=== PATIENT | male | born 1985 | race American Indian/Alaskan Native ===

== ENCOUNTER 2017-05-05 16:49 | Emergency (ER) | payer OTHER ==
[2017-05-05 16:49] VITALS: BMI 29.9
[2017-05-05] MEDS ORDERED: Sodium Chloride 0.9% 1,000 ML IV ONE (17:24)
--- NOTE | 2017-05-05 17:35 | C.PDOC ---
History Of Present Illness 32 y/o male presents to ED with complaints of abdominal pain and onset headache. Patient states he was seen at [facility] on Wednesday and treated for a stomach virus and discharged with medications with no improvement. Patient denies fever, chills, n/v/d or any other complaints at this time. Time Seen by Provider: 05/05/17 17:13 Chief Complaint (Nursing): Abdominal Pain History Per: Patient History/Exam Limitations: no limitations Onset/Duration Of Symptoms: Days Current Symptoms Are (Timing): Still Present Past Medical History Reviewed: Historical Data, Nursing Documentation, Vital Signs Vital Signs: Last Vital Signs Temp 99.3 F 05/05/17 16:56 Pulse 89 05/05/17 16:56 Resp 18 05/05/17 16:56 BP 124/89 05/05/17 16:56 Pulse Ox 99 05/05/17 18:27 - Medical History PMH: HIV Surgical History: Appendectomy Family History: States: No Known Family Hx - Social History Hx Alcohol Use: Yes (former) Hx Substance Use: No - Immunization History Hx Tetanus Toxoid Vaccination: No Hx Influenza Vaccination: No Hx Pneumococcal Vaccination: No Review Of Systems Except As Marked, All Systems Reviewed And Found Negative. Constitutional: Negative for: Fever, Chills Gastrointestinal: Positive for: Abdominal Pain. Negative for: Nausea, Vomiting , Diarrhea Musculoskeletal: Negative for: Back Pain Physical Exam - Physical Exam Appears: Non-toxic, No Acute Distress Skin: Normal Color, Warm Head: Atraumatic, Normacephalic Oral Mucosa: Moist Cardiovascular: Rhythm Regular, No Murmur Respiratory: Normal Breath Sounds, No Rales, No Rhonchi, No Wheezing Gastrointestinal/Abdominal: Soft, No Guarding, No Rebound, Other (Diffuse abdominal pain ) Extremity: Normal ROM, Capillary Refill (<2 seconds) Neurological/Psych: Oriented x3 ED Course And Treatment - Laboratory Results Result Diagrams: 05/05/17 17:58 05/05/17 17:58 Lab Interpretation: Normal O2 Sat by Pulse Oximetry: 99 (RA) Pulse Ox Interpretation: Normal - Radiology CXR: Interpreted by Tn CXR Interpretation: Yes: No Acute Disease Progress Note: Treated with IVF NSS, zofran 4 mg IV and morphine 4 mg IV. Treated with macrobid 100 mg PO and toradol 15 mg IV. On re-evaluation abdomen soft Reassessment Condition: Improved Medical Decision Making Medical Decision Making: Patient was given Morphine, zofran, IV fluids Orders: Ct Scan of abdomen and CXR Disposition Counseled Patient/Family Regarding: Studies Performed, Diagnosis, Need For Followup, Rx Given - Disposition Disposition: HOME/ ROUTINE Disposition Time: 18:45 Condition: STABLE Additional Instructions: Follow up with Dr Asher Return to ED if any increase symptoms Prescriptions: Naproxen [Naprosyn] 1 tab PO BID PRN #25 tab PRN Reason: Pain Nitrofurantoin Macrocrystals [Macrobid] 1 cap PO BID #14 cap Instructions: Abdominal Pain (ED), Urinary Tract Infection in Men (ED) - POA Present On Arrival: None - Clinical Impression Clinical Impression: Abdominal pain, UTI (urinary tract infection) - PA / EDUCATIONAL SPECIALIST / Resident Statement MD/DO has reviewed & agrees with the documentation as recorded. - Scribe Statement The provider has reviewed the documentation as recorded by the Silverio Arnett All medical record entries made by the Silverio were at my direction and personally dictated by me. I have reviewed the chart and agree that the record accurately reflects my personal performance of the history, physical exam, medical decision making, and the department course for this patient. I have also personally directed, reviewed, and agree with the discharge instructions and disposition.
[2017-05-05 18:04] LABS: BASO # 0.1 K/uL (0.0-0.2); BASO % 0.5 % (0.0-2.0); EOS # 0.2 K/uL (0.0-0.7); LYMPH # 2.2 K/uL (1.0-4.3); MEAN PLATELET VOLUME 7.6 fL (7.2-11.7)
[2017-05-05 18:10] LABS: EOS % 2.3 % (0.0-4.0); HEMATOCRIT 44.6 % (35.0-51.0); LYMPH % 21.1 % (20.0-40.0); MEAN CELL VOLUME 91.7 fL (80.0-94.0); MEAN CORPUSCULAR HEMOGLOBIN 30.1 pg (27.0-31.0); MEAN CORPUSCULAR HGB CONC 32.8 g/dL (33.0-37.0); MONO # 1.4 K/uL (0.0-0.8); MONO % 12.9 % (0.0-10.0); RED CELL DISTRIBUTION WIDTH 14.3 % (11.5-14.5); WHITE BLOOD COUNT 10.5 K/uL (4.8-10.8)
[2017-05-05 18:11] LABS: CHLORIDE 97 mmol/L (98-107)
[2017-05-05 18:12] LABS: POTASSIUM 3.1 mmol/L (3.6-5.2); SODIUM 135 mmol/L (132-148)
[2017-05-05 18:14] LABS: BILIRUBIN,TOTAL 0.8 mg/dL (0.2-1.3); CARBON DIOXIDE 26 mmol/L (22-30); GFR AFRICAN-AMERICAN > 60
[2017-05-05 18:15] LABS: ALKALINE PHOSPHATASE 68 U/L (38-126); ALT/SGPT 41 U/L (21-72); AST/SGOT 32 U/L (17-59); BLOOD UREA NITROGEN 6 mg/dL (9-20); CALCIUM 8.7 mg/dl (8.6-10.4); GLUCOSE,RANDOM 95 mg/dL (75-110); TOTAL PROTEIN 7.1 g/dL (6.3-8.3)
--- NOTE | 2017-05-05 18:19 | CT ---
PROCEDURE: CT Abdomen and Pelvis without intravenous contrast HISTORY: Pain COMPARISON: None. TECHNIQUE: Technique. Contrast Dose: Radiation dose: Total exam DLP = 566 mGy-cm. This CT exam was performed using one or more of the following dose reduction techniques: Automated exposure control, adjustment of the mA and/or kV according to patient size, and/or use of iterative reconstruction technique. FINDINGS: LOWER THORAX: Unremarkable. LIVER: Unremarkable. No gross lesion or ductal dilatation. GALLBLADDER AND BILE DUCTS: Unremarkable. PANCREAS: Unremarkable. No gross lesion or ductal dilatation. SPLEEN: Unremarkable. ADRENALS: Unremarkable. No mass. KIDNEYS AND URETERS: Unremarkable. No hydronephrosis. No solid mass. VASCULATURE: Unremarkable. No aortic aneurysm. BOWEL: Unremarkable. No obstruction. No gross mural thickening. APPENDIX: Resected. PERITONEUM: Unremarkable. No free fluid. No free air. LYMPH NODES: Multiple mildly enlarged mesenteric lymph nodes possibly indicating a mesenteric adenitis. BLADDER: Unremarkable. REPRODUCTIVE: Unremarkable. BONES: No acute fracture. OTHER FINDINGS: None. IMPRESSION: Multiple mildly enlarged mesenteric lymph nodes possibly indicating a mesenteric adenitis. Cannot exclude other lymphoproliferative disorders.
[2017-05-05 18:32] LABS: RBC URINE 90 /hpf (0-3); TRANSITIONAL EPITHIAL < 1 /hpf (0-3); URINE BACTERIA OCC (<OCC); URINE BILIRUBIN 1+ (NEGATIVE); URINE BLOOD 3+ (NEGATIVE); URINE COLOR Amber (YELLOW); URINE GLUCOSE (UA) NORMAL (Normal); URINE KETONE 2+ mg/dL (NEGATIVE); URINE LEUKOCYTE ESTERASE 1+ Leu/uL (Negative); URINE PROTEIN 2+ mg/dL (NEGATIVE); WBC URINE 15 /hpf (0-5)
[2017-05-05] MEDS ORDERED: Morphine 4 MG/ML VIAL ONE (18:40)
[2017-05-05] MEDS ORDERED: Sodium Chloride 0.9% 1,000 ML ONE (18:40)
[2017-05-05 19:27] VITALS: BP 117/80; PULSE 76; RESP 17; TEMP 98.3; O2SAT 98
--- NOTE | 2017-05-06 10:18 | RAD ---
HISTORY: Shortness of breath COMPARISON: No prior. TECHNIQUE: Chest PA and lateral FINDINGS: LUNGS: No active pulmonary disease. Small nodular density at the left lung base may represent confluence of shadows with ribs and vessels. PLEURA: No significant pleural effusion identified. No pneumothorax apparent. CARDIOVASCULAR: Normal. OSSEOUS STRUCTURES: No significant abnormalities. VISUALIZED UPPER ABDOMEN: Normal. OTHER FINDINGS: None. IMPRESSION: No active pulmonary disease. Small nodular density at the left lung base may represent confluence of shadows with ribs and vessels.
== END 2017-05-05 19:27 | disposition home or self-care (01) ==
LOC: C.ER 16:49
DX: N39.0 Urinary tract infection, site not specified (principal)
CPT/HCPCS: 71020; 74176; 80053; 81001; 83690; 85025; 87086; 87491; 87591; 96361; 96374; 96375; 99285; J1885; J2270; J2405; J7040

== ENCOUNTER 2017-07-03 17:30 | Emergency (ER) | payer OTHER ==
[2017-07-03 17:31] VITALS: BMI 29.9
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
[2017-07-03 18:41] VITALS: BP 126/80; PULSE 76; RESP 18; TEMP 98; O2SAT 99
--- NOTE | 2017-07-04 08:37 | RAD ---
PROCEDURE: Cervical Spine Radiographs. HISTORY: Pain. COMPARISON: None. FINDINGS: BONES: Straightened curvature. No displaced fracture or spondylolisthesis is identified. The odontoid process is intact as well as C1-2 articulation and craniocervical junction. DISC SPACES: Minimal multilevel cervical spondylosis is encountered. SOFT TISSUES: Normal. No prevertebral soft tissue swelling. OTHER FINDINGS: None. IMPRESSION: Minimal degenerative disease. Straightened cervical curvature.
== END 2017-07-03 18:45 | disposition home or self-care (01) ==
LOC: C.ER 17:30
DX: S16.1XXA Strain of muscle, fascia and tendon at neck level, initial encounter (principal); V43.52XA Car driver injured in collision with other type car in traffic accident, initial encounter; Y92.410 Unspecified street and highway as the place of occurrence of the external cause

== ENCOUNTER 2018-03-06 12:04 | Emergency (ER) | payer OTHER ==
[2018-03-06 12:05] VITALS: BMI 29.9
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
[2018-03-06 13:44] VITALS: BP 109/70; PULSE 81; RESP 16; TEMP 98.1
[2018-03-06 16:25] VITALS: O2SAT 100
== END 2018-03-06 13:20 | disposition home or self-care (01) ==
LOC: C.ER 12:04
DX: G89.29 Other chronic pain (principal); M54.2 Cervicalgia

== ENCOUNTER 2019-04-04 13:21 | Outpatient (CLI) | payer MEDICAID | END 2019-04-04 13:22 | disposition home or self-care (01) | LOC: C.LAB 13:21 | DX: Z01.818 Encounter for other preprocedural examination (principal) ==